=== PATIENT | female | born 1960 | race Two or more races ===

== ENCOUNTER 2020-09-03 06:35 | Day surgery (SDC) | payer OTHER ==
--- NOTE | 2020-09-02 14:55 | NUR ---
[employer] translation services used to obtain medical history in Lao with millinery blocker Regie ID# [id number].
[2020-09-03] VITALS (7 sets, daily range): BP systolic 111–148; BP diastolic 76–95
[~2020-09-03] VITALS: Ht 157.5 cm; Wt 88.9 kg
[~2020-09-03 06:35] MED LIST: FUROSEMIDE20 M1 ORAL; LOSARTAN POTASS25 MG ORAL; OMEPRAZOLE20 M2 ORAL
--- NOTE | 2020-09-03 06:54 | Short Stay Surgery H&P ---
History of Present Illness History of Present Illness Chief Complaint Abdominal pains, GERDS. ALEXIS Villagomez is a 60 year old female who was admitted on for Abdominal Pain/GERDs. Patient History Allergies: Coded Allergies: PENICILLINS (Verified Allergy, Intermediate, rash, 09/02/20) PAST MEDICAL HISTORY: (1) Hypertension (2) Asthma (3) History of shoulder surgery Medication History Scheduled Furosemide* (Lasix*), 20 MG ORAL DAILY, (Reported) Losartan Potassium* (Losartan Potassium*), 25 MG ORAL DAILY, (Reported) Omeprazole (Omeprazole), 20 MG ORAL DAILY, (Reported) Review of Systems Cardiovascular: Reports: hypertension Respiratory: Reports: asthma Skeletal: Reports: trauma Gastrointestinal: Reports: gastro esophageal reflux disease Genitourinary: Reports: no symptoms Neurologic: Reports: no symptoms Endocrine: Reports: no symptoms Hematologic: Reports: no symptoms Physical Exam Skin: normal HENT: normal Heart: normal Lungs: normal Abdomen: abnormal Extremities: normal Genitourinary: normal Plan Plan of Care Upper and lower GI endoscopies. Preop Interventions None. Summary of Findings See the reports. Attestation Are the patient's medical conditions optimized for surgery? Attestation Response: yes Tamar Morales MD Sep 03, 2020 06:54
--- NOTE | 2020-09-03 06:56 | Pre-Procedure Note/Attestation ---
Pre-Procedure Note/Attestation Complete Prior to Procedure Planned Procedure: left Procedure Narrative: Examination of the upper and the lower GI tract via endoscopy. Indications for Procedure Pre-Operative Diagnosis: R/O Peptic ulcer/gastritis/colitis Attestation I attest that I discussed the nature of the procedure; its benefits; risks and complications; and alternatives (and the risks and benefits of such alternatives), prior to the procedure, with the patient (or the patient's legal workforce services representative). I attest that, if there was a reasonable possibility of needing a blood transfusion, the patient (or the patient's legal workforce services representative) was given the [place] [facility] [employer] [facility] standardized written summary, pursuant to the Otilio Lydia Blood Safety Act ([place] Health and Safety Code # 1645, as amended). I attest that I re-evaluated the patient just prior to the surgery and that there has been no change in the patient's H&P, except as documented below: Tamar Morales MD Sep 03, 2020 06:56
[2020-09-03] MEDS ORDERED: fentaNYL 100 mcg/2 mL IV PRN (07:00)
[2020-09-03] MEDS ORDERED: DiphenhydrAMINE 50mg/ml Inj IVP PRN (07:00)
[2020-09-03] MEDS ORDERED: LR 1000ml 1,000 ML IVLG SCH ×2 (07:00)
[2020-09-03] MEDS ORDERED: Labetalol 5mg/ml 20ml vial IV SCH (07:00)
[2020-09-03] MEDS ORDERED: Atropine Inj 1mg/10ml Syr IVP PRN (07:00)
[2020-09-03] MEDS ORDERED: Midazolam 2mg/2ml Inj IVP PRN (07:00)
--- NOTE | 2020-09-03 07:04 | Anethesia Preoperative Eval ---
Anesthesia Pre-op PMH/ROS General Date of Evaluation: Sep 03, 2020 Time of Evaluation: 07:01 Anesthesiologist: rodriguez ASA Score: ASA 3 Mallampati Score Class I : Soft palate, uvula, fauces, pillars visible Class II: Soft palate, uvula, fauces visible Class III: Soft palate, base of uvula visible Class IV: Only hard plate visible Mallampati Classification: Class II Surgeon: james Diagnosis: abdominal pain Surgical Procedure: egd/colonoscopy Anesthesia History: none Social History: smoking - nonsmoker Family History: no anesthesia problems Allergies: Coded Allergies: PENICILLINS (Verified Allergy, Intermediate, rash, 09/03/20) Medications: see eMAR Patient NPO?: Yes Past Medical History Cardiovascular: Reports: HTN Pulmonary: Reports: asthma, other - bronchitis Gastrointestinal/Genitourinary: Reports: GERD, other - fatty liver Endocrine: Reports: DM HEENT: Reports: other - detached retina Musculoskeletal/Integumentary: Reports: DDD, other - bilateral shoulder surgery Other: obesity PSxH Narrative: bilateral shoulder surgery Anesthesia Pre-op Phys. Exam Physician Exam Last Vital Signs Date Time Temp Pulse Resp B/P (MAP) Pulse Ox O2 Delivery O2 Flow Rate FiO2 09/03/20 07:05 97.9 77 20 139/95 97 Room Air Constitutional: NAD Neurologic: CN 2-12 intact Cardiovascular: RRR Respiratory: CTA Gastrointestinal: S/NT/ND Airway Exam Mallampati Score: Class II MO: limited Neck: short TMD: 2fb ROM: limited Teeth: intact Anesthesia Pre-op A/P Labs Microbiology Date/Time Source Procedure Growth Status 09/02/20 08:40 Nasopharynx SARS-CoV-2 RdRp Gene Assay - Final Complete Risk Assessment & Plan Assessment: asa3 Plan: mac Status Change Before Surgery: No Pre-Antibiotics Drug: Angela Dailey MD Sep 03, 2020 07:04
[2020-09-03] MEDS ORDERED: Atropine Sulfate 0.4mg/ml inj ONE (07:30)
[2020-09-03] MEDS ORDERED: LR 1000ml ONE (07:30)
[2020-09-03] MEDS ORDERED: Lidocaine 1% MPF 10mg/ml 5ml ONE (07:30)
--- NOTE | 2020-09-03 08:21 | Endoscopy Procedure Note ---
Endoscopy Procedure Note General Indication for Procedure: abdominal pains/GERDs/dysphagia, rectal bleding Procedures Performed: EGD - Completely normal upper GI endoscopy with minimal amount of bile in the gastric cavity. Biopsy done per random from gastric body., colonoscopy - Highly redundant colon. Internal hemorrhoids, non friable. Diverticulosis of the left colon. Specimen: yes Pt Tolerated Procedure Well: Yes Estimated Blood Loss: none Anesthesia Anesthesiologist: Dr. Victor Anesthesia: moderate sedation Medications Medication Given: see anesthesia record Inserted Devices Implant(s) used?: No Quality Quality of Bowel Preparation: Excellent Did scope reach the cecum?: Yes Was there any complications?: No GI Core Measures 50 yrs or older w/o bx or poly: Yes 10yrs. F/U recommended: Yes If not recommended, why?: Med reason:<3 yrs.: System Reason:<3 yrs.: Tamar Morales MD Sep 03, 2020 08:21
--- NOTE | 2020-09-03 08:22 | Discharge Instructions ---
Discharge Instructions Discharge Instructions Follow up with: No need to follow with Dr. Morales. For Congestive Heart Failure Reminder Report to your physician any weight gain of 5 pounds or more in one week. Tamar Morales MD Sep 03, 2020 08:22
--- NOTE | 2020-09-03 08:57 | Immediate Post-Op Evaluation ---
Immediate Post-Op Evalulation Immediate Post-Op Evalulation Procedure: egd/colonoscopy w/bx Date of Evaluation: Sep 03, 2020 Time of Evaluation: 08:36 IV Fluids: 450ml lr Blood Products: none Estimated Blood Loss: negligible Blood Pressure Systolic: 148 Blood Pressure Diastolic: 84 Pulse Rate: 77 Respiratory Rate: 18 O2 Sat by Pulse Oximetry: 99 Temperature (Fahrenheit): 97.9 Pain Score (1-10): 0 Nausea: No Vomiting: No Complications none Patient Status: awake, reacts, patent Hydration Status: adequate Drug: Angela Dailey MD Sep 03, 2020 08:57
--- NOTE | 2020-09-03 08:58 | 48 Hour Post Anesthesia Eval ---
Post Anesthesia Evaluation Procedure: egd/colonoscopy w/bx Date of Evaluation: Sep 03, 2020 Time of Evaluation: 08:38 Blood Pressure Systolic: 111 0: 76 Pulse Rate: 74 Respiratory Rate: 18 Temperature (Fahrenheit): 97.9 O2 Sat by Pulse Oximetry: 99 Airway: patent Nausea: No Vomiting: No Pain Intensity: 0 Hydration Status: adequate Cardiopulmonary Status: stable Mental Status/LOC: patient returned to baseline Post-Anesthesia Complications: none Follow-up care needed: N/A Angela Victor MD Sep 03, 2020 08:58
--- NOTE | 2020-09-03 09:15 | Operative Note - Dictated ---
DATE OF OPERATION: 09/03/2020 SURGEON: Tamar Morales MD. PROCEDURE: Esophagogastroduodenoscopy with biopsy. PREOPERATIVE DIAGNOSES: Abdominal pain, history of chronic gastroesophageal acid reflux with dysphagia, rule out peptic ulcer disease induced by NSAID medications, rule out gastritis, rule out esophagitis. POSTOPERATIVE DIAGNOSIS: Completely normal upper GI endoscopy with minimal amount of bile in the stomach. Biopsy was taken per random from gastric body. MEDICATION USED: Per Dr. Nunez, anesthesiologist. INSTRUMENT: GIF Olympus upper GI video endoscope. DESCRIPTION OF PROCEDURE: The patient after arriving in the endoscopy unit was told about risks and benefits of the procedure, which she accepted and signed informed consent. At this time, she was put on the left lateral decubitus position. After adequate IV sedation, the scope was gently passed through the cricopharyngeal area, was lodged into the upper esophagus, and gradually advanced towards gastroesophageal junction. The entire length of the esophagus was completely normal. No evidence of varices, inflammatory process, ulceration, stricture, etc. was found. GE junction also looked completely normal without any evidence of Guzman's or hiatal hernia. At this time, the scope was advanced into the stomach. Gastric cavity was distended with insufflation of air and gradually the areas of the fundus and the body and the antrum were examined, which basically revealed normal finding without any evidence of ulcers, polyps, inflammatory process, gastritis, etc. There was however minimal amount of bile in the body of the stomach, which was not significant. At this point, one random biopsy from gastric body was obtained and subsequently scope was passed through normal looking antrum, pylorus. First and second portion of duodenum were also examined without any pathological findings. Finally, the scope was pulled out and the procedure was terminated. The patient tolerated the procedure well. Tamar Morales M.D. DR: MOISES JOB#: [id number] CC:
--- NOTE | 2020-09-03 09:15 | Pre-op HX & Phy Repo 2 SIG ---
DATE OF ADMISSION: 09/03/2020 HISTORY OF PRESENT ILLNESS: The patient is a 60-year-old Mauritanian-speaking female who is being seen prior to undergoing the procedure of upper and lower GI endoscopic examination for which she has been scheduled to receive today. This patient basically has been injured at job site and has been seen by other gastroenterologists, Dr. Greer, who has suggested that the patient undergo an upper GI endoscopic examination. Therefore, this procedure was scheduled for today and the patient is being examined before going into the endoscopy room. 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 The fact that she has been complaining of the gastrointestinal condition is that she has been experiencing epigastric pain along with global pain all over the abdomen as well. She reports that she has moderate amount of heartburn, but mostly she suffers from generalized abdominal pain along with periods of constipation. She also reports that she does have difficulty swallowing intermittently as well. At this point, she says that she has been treated with medications such as omeprazole, which seems to be effective in controlling her symptoms as well. She denies having vomited bright red blood, but also occasionally has had some dark stool, but she is not sure that they are consistent with melena or not. She also has had periodic minimal rectal bleeding per rectum the diagnosis of which has not been made as yet. It is important to mention that this patient has been treated with nonsteroidal anti-inflammatory agents and some analgesics for a long period of time subsequent to her work injury and as such she has also been experiencing constipation and anal pain at times as well as she says. She denies having any symptoms of regurgitation at this time. She reports to me that she has never been diagnosed to have any gastrointestinal conditions in the past. She basically started to experience symptoms subsequent to her work injury and being started on multiple medications as mentioned earlier. PAST MEDICAL HISTORY: The patient has had history of hypertension and asthma. SURGICAL HISTORY: The patient has undergone surgeries over the right and the left shoulders for the past couple of years. ALLERGIES: Penicillin. FAMILY HISTORY: Nonsignificant. HABITS: She does not smoke neither she drinks. MEDICATIONS: Current medications losartan 25 mg daily, furosemide 20 mg daily, and omeprazole 20 mg daily. REVIEW OF SYSTEMS: Basically history of present illness and she occasionally complains of having some dizziness and headaches, but not significantly. Occasionally, she also has shortness of breath because she has had history of asthma, but is not active at this point of time. She denies having any chest pain, however. There is no history of urinary conditions, neurological condition, etc. PHYSICAL EXAMINATION: GENERAL: At this time reveals alert and well-oriented, very pleasant female, who does not seem to be in any acute distress. She looks well developed, nourished, and obese. VITAL SIGNS: Temperature 97.9, pulse rate 77, respiratory rate 20, blood pressure 139/95. Oxygen saturation 97% on room air. HEENT: Normocephalic. Pupils are equal in size and reactive to light and accommodation. No visible jaundice. Buccal cavity, tongue midline, well hydrated. No ulcers. NECK: Supple. No JVD, thyromegaly, or adenopathy. CHEST: Clear to auscultation and percussion. HEART: S1, S2 normal. Regular rhythm. No gallops or murmur. ABDOMEN: Soft, but quite obese. There is generalized mild tenderness all over the abdomen. There is no organomegaly or palpable mass EXTREMITIES: Unremarkable. CENTRAL NERVOUS SYSTEM: Unremarkable. INITIAL PRE-ENDOSCOPIC IMPRESSION: 1. Generalized abdominal pain, mostly consistent with irritable bowel syndrome, associated with constipation, rule out underlying colitis or hemorrhoids, polyps, or tumors. 2. Epigastric pain consistent with gastroesophageal acid reflux aggravated by side effects of NSAID medications, along with analgesics, rule out NSAID-induced gastropathy, peptic ulcer disease, esophagitis, etc. 3. History of bodily injury, work-related. 4. Asthma, obesity, and hypertension. RECOMMENDATION: The applicant at this time seems to be stable to undergo the procedure of upper and lower GI endoscopic examination for which she has been scheduled. She understands the risks and benefits and will sign the consent. Said Kaylee Morales DR: TRICIA JOB#: [id number] CC:
--- NOTE | 2020-09-03 09:30 | Operative Note - Dictated ---
DATE OF OPERATION: 09/03/2020 SURGEON: Tamar Morales MD. PROCEDURE: Total colonoscopy. PREOPERATIVE DIAGNOSES: Abdominal pain, history of rectal bleeding, anal pain, rule out colon polyps, colitis, hemorrhoids. POSTOPERATIVE DIAGNOSES: 1. Internal hemorrhoids. 2. Diverticulosis of the left colon with high redundancy of the colon, otherwise complete normal study up to the base of the cecum as examined. MEDICATION USED: Per Dr. Nunez, anesthesiologist. INSTRUMENT: GIF Olympus video colonoscope. DESCRIPTION OF PROCEDURE: The patient after arriving in the endoscopy unit, was told about risks and benefits of the procedure, which she accepted and signed informed consent. At this time, she was put on the left lateral decubitus position and after adequate IV sedation, the scope was gently introduced towards the anal area which revealed evidence of some minimal of prolapsed internal hemorrhoids, which were not significant and there were retractable. Scope at this time was introduced into the rectal area and a retroflexion maneuver was applied, which revealed evidence of a nonfriable internal hemorrhoids. The rest of the rectum looked completely normal. At this point, the scope was gradually passed through highly redundant left colon revealing diverticular lesions of the left colon, but there were not too many of them. Finally, the scope reached to the splenic flexure, transverse colon and hepatic flexure, was guided into the right colon all the way to the base of the cecum. At this time, these areas were examined that they all looked normal and there was no any evidence of polyps, tumors, inflammatory process, strictures, etc. No evidence of colitis. Finally after reaching to the base of the cecum, within 6 minutes, the scope was gradually pulled out and there was no other findings. The colon cleanup was excellent. The patient tolerated the procedure well and left endoscopy room in a good condition. Tamar Morales M.D. DR: TRICIA JOB#: [id number] CC:
== END 2020-09-03 09:30 | disposition home or self-care (01) ==
LOC: GAS 06:35
DX: R10.9 Unspecified abdominal pain (principal); K64.8 Other hemorrhoids; K57.90 Diverticulosis of intestine, part unspecified, without perforation or abscess without bleeding; I10 Essential (primary) hypertension; K29.50 Unspecified chronic gastritis without bleeding; K21.9 Gastro-esophageal reflux disease without esophagitis; Z79.899 Other long term (current) drug therapy; Z88.0 Allergy status to penicillin; E66.9 Obesity, unspecified; J45.909 Unspecified asthma, uncomplicated; Z68.35 Body mass index [BMI] 35.0-35.9, adult; E11.9 Type 2 diabetes mellitus without complications
CPT/HCPCS: 43239; 45378; 94003; J0461; J2704; J7120; U0002; 94150